=== PATIENT | female | born 1975 | race Caucasian/White ===

== ENCOUNTER 2023-06-30 10:27 | Emergency (ER) | payer SELFPAY ==
[~2023-06-30] VITALS: Ht 154.9 cm; Wt 59.4 kg
[2023-06-30] MEDS ORDERED: METOCLOPRAMIDE HCL 10 MG/2 ML VIAL IM ONE (11:30)
[2023-06-30] MEDS ORDERED: METOCLOPRAMIDE HCL 10 MG/2 ML VIAL ONE (11:43)
[2023-06-30] MEDS ORDERED: METO-295 PO (12:42)
[2023-06-30] MEDS ORDERED: IBUP-1957 PO (12:42)
[2023-06-30 12:57] VITALS: BP 132/77; TEMP 98; O2SAT 97
== END 2023-06-30 12:57 | disposition home or self-care (01) ==
LOC: ER 10:35
DX: R51.9 Headache, unspecified (principal); Z91.018 Allergy to other foods; Z79.1 Long term (current) use of non-steroidal anti-inflammatories (NSAID); Z79.899 Other long term (current) drug therapy
CPT/HCPCS: 99285; 70450; 96372; J2765; A4663